=== PATIENT | male | born 1945 | race Caucasian/White ===

== ENCOUNTER → 2020-01-15 | Outpatient (CLI) | payer MEDICARE, OTHER | LOC: CARD 13:10 | PROVIDERS: ATTEND Internal Medicine Cardiovascular Disease | DX: I08.2 Rheumatic disorders of both aortic and tricuspid valves (principal); I42.0 Dilated cardiomyopathy; I49.3 Ventricular premature depolarization | CPT/HCPCS: 93306 ==

== ENCOUNTER → 2020-07-27 | Outpatient (CLI) | payer MEDICARE, OTHER ==
[~2020-07-27] VITALS: Ht 185 cm; Wt 90.0 kg
[~2020-07-27] MED LIST: REGADENOSON 0.4 MG/5 ML SYR (LEXISCAN) IV ONE
[2020-07-27] MEDS: CATHETER FLUSH 10 ML SYR IV PRN ×2 (08:19→09:33)
[2020-07-27 09:07] VITALS: BP 133/76
--- NOTE | 2020-08-02 09:57 | STRESS TEST ---
DATE OF SERVICE: 07/27/2020 RESTING AND POST REGADENOSON TECHNETIUM-99M TETROFOSMIN SPECT CT IMAGING ORDERING PHYSICIAN: Catalina Morin APRN. CLINICAL DIAGNOSES: Fatigue. Baseline images were carried out after injection of 10.59 mCi of technetium-99m Tetrofosmin. This was followed by 0.4 mg of Regadenoson and 32.2 mCi of technetium-99m Tetrofosmin for stress imaging. The electrocardiogram showed sinus rhythm at baseline. It did not change significantly with the Regadenoson infusion. Review of images at rest and following stress does not indicate any distinct perfusion defects consistent with significant myocardial ischemia or infarction. Gated images show normal global left ventricular systolic function with normal regional wall motion. Left ventricular ejection fraction was calculated to be 49%. Left ventricular end diastolic volume is 162 mL. CONCLUSIONS: 1. No evidence of significant myocardial ischemia or infarction. 2. Mild to moderate cardiomegaly. 3. Left ventricular ejection fraction appears to be at the lower end of normal and left ventricular ejection fraction is calculated to be 49%. Job ID: [id number] DocumentID: [id number] Dictated Date: 08/02/2020 09:35:07 Pasting Inspector Date: 08/02/2020 09:56:51 Dictated By: NAIDA HESS MD, MA, FACP, FACC,
== END ==
LOC: CARD 08:06
PROVIDERS: ATTEND Nurse Practitioner Family
DX: I51.7 Cardiomegaly (principal)
CPT/HCPCS: 78452; 93017; A9502

== ENCOUNTER → 2020-08-13 | Outpatient (CLI) | payer MEDICARE, OTHER | LOC: CARD 11:14 | PROVIDERS: ATTEND Nurse Practitioner Family | DX: I08.3 Combined rheumatic disorders of mitral, aortic and tricuspid valves (principal); I51.7 Cardiomegaly; I42.0 Dilated cardiomyopathy | CPT/HCPCS: 93306 ==

== ENCOUNTER → 2020-10-04 | Outpatient (CLI) | payer MEDICARE, OTHER ==
[2020-10-04 12:51] LABS: ABSOLUTE RETIC # 38 10e9/uL (24-90); BASOPHILS # (AUTO) 0.1 10^3/uL (0.0-0.1); BASOPHILS % (AUTO) 1 % (0-10); EOSINOPHILS # (AUTO) 0.1 10^3/uL (0.0-0.3); EOSINOPHILS % (AUTO) 2 % (0-10); HEMATOCRIT 28 % (40-54); HEMOGLOBIN 7.3 g/dL (13.3-17.7); LYMPHOCYTES # (AUTO) 0.9 10^3/uL (1.0-4.0); LYMPHOCYTES % (AUTO) 18 % (12-44); MEAN CORPUSCULAR HEMOGLOBIN 19 pg (25-34); MEAN CORPUSCULAR HGB CONC 26 g/dL (32-36); MEAN CORPUSCULAR VOLUME 72 fL (80-99); MEAN PLATELET VOLUME 9.9 fL (9.0-12.2); MONOCYTES # (AUTO) 0.6 10^3/uL (0.0-1.0); MONOCYTES % (AUTO) 11 % (0-12); NEUTROPHILS # (AUTO) 3.6 10^3/uL (1.8-7.8); NEUTROPHILS % (AUTO) 68 % (42-75); PLATELET COUNT 348 10^3/uL (130-400); RETICULOCYTE % 0.99 % (0.50-2.40); WHITE BLOOD COUNT 5.2 10^3/uL (4.3-11.0)
[2020-10-04 14:01] LABS: EOSINOPHILS % (MANUAL) 1 %; LYMPHOCYTES % (MANUAL) 19 %; MONOCYTES % (MANUAL) 7 %; NEUTROPHILS % (MANUAL) 73 %
[2020-10-04 14:02] LABS: ANISOCYTOSIS MODERATE; ELLIPT/OVALOCYTES MARKED; HYPOCHROMASIA MARKED; MICROCYTOSIS MODERATE; POIKILOCYTOSIS MODERATE; SICKLE CELLS SLIGHT
[2020-10-04 14:03] LABS: ACANTHOCYTES SLIGHT; CRENATED RBC SLIGHT; SCHISTOCYTES SLIGHT
== END ==
LOC: LAB 12:29
PROVIDERS: ATTEND Internal Medicine
DX: D64.9 Anemia, unspecified (principal)
CPT/HCPCS: 36415; 82728; 85007; 85027; 85045; 85055

== ENCOUNTER → 2021-06-21 | Outpatient (CLI) | payer MEDICARE, OTHER | LOC: CARD 13:30 | PROVIDERS: ATTEND Internal Medicine Cardiovascular Disease | DX: I35.1 Nonrheumatic aortic (valve) insufficiency (principal); I51.7 Cardiomegaly; I42.0 Dilated cardiomyopathy | CPT/HCPCS: 93306 ==